=== PATIENT | male | born 1960 | race Caucasian/White ===

== ENCOUNTER 2025-04-08 17:19 | Emergency (ER) | payer MEDICARE, MEDICAID ==
[~2025-04-08] VITALS: Ht 185.4 cm; Wt 99.8 kg
[~2025-04-08 17:19] MED LIST: ASPIRIN CHEWABL81 MG PO; B COMPLEX1 EACH PO; CLOTRIMAZOLE45 G1 T; DEPAKOTE125 M1 PO; DIVALPROEX SOD500 MG PO; LEXAPRO10 MG PO; LISINOPRIL20 MG PO; LOPRESSOR25 MG PO; MAGNESIUM400 MG PO; NAMENDA-5 PO; NATURE'S BLEND F1 MG PO; Nizoral 2%15 GM T; REMERON SOLTAB45 MG PO; RISPERDAL2 M1 PO; RISPERIDONE M-0.5 MG OGT; RIVASTIGMINE1 EAC2 T; TRAZODONE50 MG PO; VISTARIL25 MG PO; VITAMIN D3 MA125 MC1 PO; VITAMIN D325 MCG PO; XARE20MG PO
[2025-04-08 18:38] LABS: BASO # 0.1 10*3/uL (0.0-0.1); BASO % 1.1 % (0.0-1.0); EOS # 0.1 10*3/uL (0.0-0.4); EOS % 2.7 % (1.0-4.0); MEAN CELL VOLUME 94.6 fl (80.0-94.0); MEAN CORPUSCULAR HGB 32.0 pg (27.0-31.0); MEAN PLATELET VOLUME 11.5 fl (9.6-12.3); MONO # 0.7 10*3/uL (0.1-1.0); MONO % 15.0 % (3.0-9.0); NEUT # 2.2 10*3/uL (2.3-7.9); NEUT % 49.5 % (47.0-73.0); NUCLEATED RED BLOOD CELL 0.0 % (0.0-0.0); NUCLEATED RED BLOOD CELL 0.0 10*3/uL (0.0-0.0); PLATELET COUNT AUTOMATED 132 10*3/uL (130-400); RED CELL DISTRI WIDTH 13.1 % (0-14.5)
[2025-04-08] MEDS ORDERED: ERGOCALCIFEROL1 GM PO (18:43)
[2025-04-08] MEDS ORDERED: EXELON1 EAC2 TD (18:44)
[2025-04-08 18:49] LABS: BUN 17 mg/dl (9-23); SGPT/ALT 17 U/L (5-49)
[2025-04-08 18:50] LABS: ETHYL ALCOHOL < 3.0 mg/dl (<3)
[2025-04-08] MEDS ORDERED: RISPERDAL0.5 MG PO (18:52)
[2025-04-08] MEDS ORDERED: TYLENOL325 M2 PO (18:54)
[2025-04-08 22:42] LABS: BILIRUBIN Negative (Negative); BLOOD Negative (Negative); CLARITY Cloudy (Clear); COLOR Yellow (Yellow); KETONE Trace (Negative); LEUKO ESTERASE Negative (Negative); NITRITE Negative (Negative); SPECIFIC GRAVITY 1.015 (1.001-1.030); UROBILINOGEN 0.2 E.U./dl (0.0-1.0)
[2025-04-08 22:50] LABS: URINE AMPHETAMINES Negative (1000ng/ml); URINE BARBITURATES Negative (200ng/ml); URINE BENZODIAZEPINES Negative (200ng/ml); URINE CANNABINOIDS (THC) Negative (50ng/ml); URINE COCAINE Negative (300ng/ml); URINE METHADONE Negative (300ng/ml); URINE OPIATES Negative (300ng/ml); URINE PHENCYCLIDINE Negative (25ng/ml)
[2025-04-08 23:37] LABS: PH >= 9.0 (4.5-8.0)
[2025-04-08 23:38] LABS: WBC 0-2 wbc/hpf (0-5)
[2025-04-09] MEDS ORDERED: MILK OF MA400 MG/5 M PO (05:53)
== END 2025-04-09 04:56 ==
LOC: ED 17:19
PROVIDERS: Internal Medicine
DX: F03.90 Unspecified dementia, unspecified severity, without behavioral disturbance, psychotic disturbance, mood disturbance, and anxiety (principal); F29 Unspecified psychosis not due to a substance or known physiological condition; R45.6 Violent behavior; Z79.899 Other long term (current) drug therapy; Z79.82 Long term (current) use of aspirin